=== PATIENT | male | born 1965 | race Caucasian/White ===

== ENCOUNTER 2020-03-27 12:54 | Emergency (ER) | payer OTHER, SELFPAY ==
[2020-03-27 12:54] VITALS: BP 137/84; PULSE 69; RESP 20; TEMP 36.8; O2SAT 98
--- NOTE | 2020-03-27 13:07 | ED.WOUNDLAC ---
HPI - Wound/Laceration General Chief Complaint: Wound/Laceration Stated Complaint: wrist lac Time Seen by Provider: 03/27/20 12:58 History of Present Illness HPI narrative: previously health 54 yo male presents to the ED for a forearm injury. He accidentally cut his arm with a compact mitre saw. Deep laceration to anterior forearm. Motor and sensory intact. Bleeding controlled. Unsure of tetanus status. Moderate pain. Related Data Allergies Allergy/AdvReac Type Severity Reaction Status Date / Time No Known Allergies Allergy Verified 03/27/20 13:00 Review of Systems Review of Systems: All systems reviewed & are unremarkable except as noted in HPI and below (HPI and below) Constitutional: Constitutional: Denies chills, Denies fever(s) and Denies weakness Cardiovascular: Cardiovascular: Denies chest pain Respiratory: Respiratory: Denies dyspnea Gastrointestinal: Gastrointestinal: Denies nausea Genitourinary: Genitourinary: Denies dysuria Musculoskeletal: Musculoskeletal: Denies back pain Neurologic: Denies dizziness and Denies weakness [facility] Past Medical History Medical History (Updated 03/27/20 @ 14:34 by Floyd Ugarte MD) Healthy adult Social History Social History Gender identity (if verbalized by the patient): Male Exam Const: General: healthy appearing, no acute distress and alert Orientation/consciousness: patient oriented x3 HENMT: Head: normal to inspection Neck: Neck: normal visual inspection Resp: Effort & Inspection: normal respiratory effort Auscultation: clear to auscultation bilaterally Cardio: Other: 2 + right radial. brisk distal capillary refill Extrem: Other: 5 cm laceration to anterior forearm. 2 cm disruption of fascia and apparent tendon injury. Appears partial with mild muscular involvement. Motor and sensory grossly intact throughout. Course Vital Signs Vital signs: Vital Signs Temperature 36.8 C 03/27/20 12:54 Pulse Rate 69 03/27/20 12:54 Respiratory Rate 20 03/27/20 12:54 Blood Pressure 137/84 03/27/20 12:54 Pulse Oximetry 98 03/27/20 12:54 Temperature 36.8 C 03/27/20 12:54 Pulse Rate 90 03/27/20 14:22 Respiratory Rate 20 03/27/20 14:22 Blood Pressure 128/88 03/27/20 14:22 Pulse Oximetry 100 03/27/20 14:22 Procedures Laceration Laceration 1: Site: upper extremity Side (If applicable): right Size (cm): 5 Description: linear Depth: involves tendon Local Anesthetic: lidocaine 1% and with epi Amount of anesthesia used (mL): 4 Pre-repair: wound explored and irrigated extensively (500 ml) ====== Skin Level ====== ====== Subcutaneous Layer ====== ====== Muscle Layer ====== ====== Tendon Layer ====== Dressing: No closure performed. Dr. Soler called due to tendon involvement. He will see him in clinic this afternoon. Discharge Plan Discharge Clinical Impression: Forearm laceration Qualifiers: Encounter type: initial encounter Laterality: right Qualified Code(s): S51.811A - Laceration without foreign body of right forearm, initial encounter Patient Disposition: Home, Self-Care Condition: Stable Instructions: Antibiotic Form, Laceration (ED) Follow-up/Referrals: Varun Avila MD [Physician] - Freddy Soler MD [Physician] -
[2020-03-27 14:22] VITALS: BP 128/88; PULSE 90; RESP 20; O2SAT 100
== END 2020-03-27 14:24 | disposition home or self-care (01) ==
PROVIDERS: Emergency Provider Emergency Medicine; PCP Internal Medicine
DX: S56.921A Laceration of unspecified muscles, fascia and tendons at forearm level, right arm, initial encounter (principal); S51.811A Laceration without foreign body of right forearm, initial encounter; W31.2XXA Contact with powered woodworking and forming machines, initial encounter
CPT/HCPCS: 99282

== ENCOUNTER → 2020-03-30 07:41 | Outpatient (CLI) | payer OTHER, SELFPAY ==
[2020-03-30 18:27] LABS: SARS-CoV-2 RNA PCR Negative
== END ==
PROVIDERS: PCP Internal Medicine; Visit Provider Plastic Surgery
DX: Z01.812 Encounter for preprocedural laboratory examination (principal); Z20.822 Contact with and (suspected) exposure to COVID-19
CPT/HCPCS: C9803; U0003; U0005

== ENCOUNTER 2020-03-31 12:53 | Outpatient (CLI) | payer OTHER, SELFPAY ==
--- NOTE | 2020-03-31 12:57 | ECG_ITS ---
Measurements Intervals [place] Rate: 70 P: 62 [place]: 126 QRS: 55 QRSD: 118 T: 13 QT: 418 QTc: 453 Interpretive Statements SINUS RHYTHM INCOMPLETE RIGHT BUNDLE BRANCH BLOCK DELAYED PRECORDIAL R/S TRANSITION BORDERLINE T WAVE ABNORMALITY- INFERIOR LEADS BASELINE ARTIFACT- I, II, III, V1 BORDERLINE ECG Electronically Signed On 03-31-2020 13:48:55 [employer] by Parvez Carrasco D.O.
[2020-03-31 13:31] LABS: Anion Gap 7 mmol/L (8-16); Blood Urea Nitrogen 20 mg/dL (9-20); Calcium 8.8 mg/dL (8.4-10.2); Carbon Dioxide 28 mmol/L (22-30); Chloride 101 mmol/L (98-107); Estimated Glomerular Filt Rate > 60; Glucose 96 mg/dL (75-110); Potassium 3.5 mmol/L (3.4-5.0); Sodium 136 mmol/L (137-145)
== END 2020-03-31 12:54 | disposition home or self-care (01) ==
LOC: ANHSURGERY 12:57
PROVIDERS: Anesthesiology; PCP Internal Medicine; Visit Provider Plastic Surgery
DX: Z01.818 Encounter for other preprocedural examination (principal); I10 Essential (primary) hypertension; I45.10 Unspecified right bundle-branch block
CPT/HCPCS: 36415; 80048; 93005

== ENCOUNTER 2020-04-02 00:29 | Day surgery (SDC) | payer OTHER, SELFPAY ==
[2020-03-31 10:10] VITALS: BMI 29.6
[2020-04-02] VITALS (8 sets, daily range): BP systolic 140–154; BP diastolic 75–91; PULSE 60–66; RESP 10–20; TEMP 36.2–36.9; O2SAT 97–100
--- NOTE | 2020-04-02 07:08 | WPDHPUPDATE1 ---
History and Physical Update Update Date/Time: 04/02/20 07:08 History and Physical has been reviewed, including an updated exam of the patient. There are NO changes in the patient's condition. Risks, benefits, and alternatives have been discussed and questions answered. Patient agrees to proceed with procedure.
[2020-04-02] MEDS: LACTATED RINGERS 1,000 ML 30 ML IV CONT (09:08)
--- NOTE | 2020-04-02 09:43 | WPDANESEPPF ---
Anes - Initial Pre Proc Eval Procedure: Operation Date: 04/02/20 10:30 Proposed Procedures p Repair Right Flexor Carpi Radialis Tendon(Right) - Freddy Song MD Date/Time: 04/02/20 09:43 Surgeon: Frdedy Song MD Pre Op Diagnosis: Partial Laceration Of The Right Flexor Carpi Radia Patient Data Age: 54 Gender: M Height: 5 ft 9 in Weight: 92.3 kg Last Vital Signs Temp 36.9 C 04/02/20 09:11 Pulse 66 04/02/20 09:11 Resp 16 04/02/20 09:11 BP 145/81 H 04/02/20 09:11 Pulse Ox 99 04/02/20 09:11 Allergies Allergy/AdvReac Type Severity Reaction Status Date / Time No Known Allergies Allergy Verified 04/02/20 08:30 Home Medications Medication Instructions Recorded Confirmed Type amlodipine 5 mg PO DAILY 03/31/20 04/02/20 History atorvastatin 20 mg PO DAILY 03/31/20 04/02/20 History fluticasone propion-salmeterol 1 inh INHALATION BID 03/31/20 04/02/20 History [Wixela Inhub] hydrochlorothiazide 25 mg PO DAILY 03/31/20 04/02/20 History levothyroxine 137 mcg PO DAILY 03/31/20 04/02/20 History olmesartan 20 mg PO DAILY 03/31/20 04/02/20 History Patient hx anesthesia problems: none Family hx anesthesia problems: none PMFSH Past Medical History Medical History (Updated 04/02/20 @ 09:43 by Helio Ricktets MD) HTN (hypertension) Hyperlipidemia Obesity Surgical History Surgical History (Updated 04/02/20 @ 09:43 by Helio Ricketts MD) H/O sinus surgery History of appendectomy Social History Social History Smoking status: Never smoker Alcohol intake: current Living arrangements: with family Gender identity (if verbalized by the patient): Male Spiritual care concerns: No Anes - Eval Final PreProcedure Day of Procedure 04/02/20 09:43 Patient weight: obese Heart: regular rate and rhythm Lungs: clear to auscultation Airway: Mallampati scale class II Neurological: alert and oriented Last oral intake: >/= 8 hours ASA classification: II Emergent: no Anesthetic plan: proceed Anesthesia type and monitoring: general LMA and standard monitoring Informed Consent: The patient's anesthetic plan and its attendant risks and benefits were discussed with the patient/family/POA. Questions were solicited and answers provided to the satisfaction of the patient/family/POA.
[2020-04-02] MEDS: LIDO 1%/EPINEPHRINE 1:100,000 50 ML VIAL INFILTRATE (11:15)
[2020-04-02] MEDS: BACITRACIN OINTMENT 15 GM TUBE 1 APPLIC TOPICAL (11:24)
--- NOTE | 2020-04-02 12:10 | PM.OP ---
Procedure Note - Brief Procedure Note - Brief Date of procedure: 04/02/20 Pre-op diagnosis: Partial Laceration Of The Right Flexor Carpi Radia Post-op diagnosis: same Procedure performed: Repair FCR Anesthesia: MAC Surgeon: Freddy Song MD Tourniquet time (min): 31 Drains: No Packing: No Pathology: none sent Complications: No immediate complications Disposition: same day
--- NOTE | 2020-04-02 12:39 | P.OP_ITS ---
Procedure Note - Detailed Date of procedure: 04/02/20 Pre-op diagnosis: Partial Laceration Of The Right Flexor Carpi Radia Post-op diagnosis: same Procedure performed: Repair of 75% laceration of the flexor carpi radialis tendon, right upper extremity Description of procedure: The right wrist area was marked as the patient only in holding. He was taken to the operating room where he was placed supine on the operating table. Time-out was held confirmed. He was given general anesthesia with an LMA. The extremity was prepped and draped in usual fashion. The site was examined and was scrubbed rather briskly with a wet Ray-Abilio sponge. The site was locally infiltrated with 1% lidocaine with epinephrine. There was no necrotic tissue, there was no purulence, there was excellent granulation tissue. The sheath around the flexor carpi radialis was incised proximally and distally to ascertain the in entire wound to the tendon. As noted approximately 25% tendon remained intact. The other 75% was some shredded and had retracted. We were able to free that up and, with a little wrist flexion, could approximate the opposing lacerated ends. A modified Ortiz stitch with 3-0 FiberWire was placed across that as the primary tension bearing repair. This was followed by a [id number] stitch at the same site. The frayed ends were repaired to the rest of the core with running 5 0 Prolene at several sites.. This repair did no t result in a flexion deformity. We were able to extend and flex the wrist without significant stress on the repair site. The skin was closed with a running 5 0 nylon. The bulky bandage with a stock volar wrist splint was applied he has instructions in wound care and follow-up the prescription being sent for Keflex 500 mg in the the team and some hydrocodone 5/325 Surgeon: Freddy Song MD
== END 2020-04-02 13:50 | disposition home or self-care (01) ==
PROVIDERS: PCP Internal Medicine; Visit Provider Plastic Surgery
PROC: (CPT 25260; principal; 2020-04-02 10:30)
DX: S66.821A Laceration of other specified muscles, fascia and tendons at wrist and hand level, right hand, initial encounter (principal); W31.2XXA Contact with powered woodworking and forming machines, initial encounter; I10 Essential (primary) hypertension; E78.5 Hyperlipidemia, unspecified; J45.909 Unspecified asthma, uncomplicated; E07.9 Disorder of thyroid, unspecified; E66.9 Obesity, unspecified; Z68.30 Body mass index [BMI] 30.0-30.9, adult
CPT/HCPCS: 25260; 36415; 80048; 93005; A9270; C9803; J1100; J2250; J2405; J2704; J3010; J7120; U0003; U0005

== ENCOUNTER 2020-07-05 11:41 | Emergency (ER) | payer OTHER, SELFPAY ==
[2020-07-05 11:50] VITALS: BP 147/97; PULSE 68; RESP 16; TEMP 37; O2SAT 99
--- NOTE | 2020-07-05 12:21 | ED.GENADULT ---
HPI - General Adult General Chief complaint: Abdominal Pain Stated complaint: Abd complaint Time Seen by Provider: 07/05/20 12:21 Source: patient Mode of arrival: ambulatory Limitations: no limitations History of Present Illness HPI narrative: Rakesh Macias 5-year-old male who comes to [facility] with complaints of left upper quadrant pain that started on Monday. He has no trauma and no medical reason for having the pain but did have an a lot of alcohol to drink on evening (described as more than 6 beers). He has not had this pain before he has not had a fever he has no nausea vomiting but he generally has a feeling of not wanting to eat, he is eaten Monday evening he had some pizza Monday had some steak and and peanuts and was tolerated that fine but states his appetite is different and just feels different so he will is interested in getting a more in-depth evaluation of the pain. Is nonreproducible Related Data Home Medications Medication Instructions Recorded Confirmed amlodipine 5 mg PO DAILY 03/31/20 04/02/20 atorvastatin 20 mg PO DAILY 03/31/20 04/02/20 fluticasone propion-salmeterol 1 inh INHALATION BID 03/31/20 04/02/20 [Melissaxela Inhub] hydrochlorothiazide 25 mg PO DAILY 03/31/20 04/02/20 levothyroxine 137 mcg PO DAILY 03/31/20 04/02/20 olmesartan 20 mg PO DAILY 03/31/20 04/02/20 Allergies Allergy/AdvReac Type Severity Reaction Status Date / Time No Known Allergies Allergy Verified 04/02/20 08:30 Review of Systems Review of Systems: Narrative: CONSTITUTIONAL: Denies fever, chills, sweats. EYES: Denies visual changes, redness, discharge. ENT: Denies rhinorrhea, congestion, sore throat, otalgia. CARDIOVASCULAR: Denies chest pain, palpitations, edema. RESPIRATORY: Denies dyspnea, wheezing, cough GASTROINTESTINAL: Denies abdominal pain, nausea, vomiting, diarrhea. Left upper quadrant pain GENITOURINARY: Denies dysuria, hematuria, abnormal discharge SKIN: Denies rash or itching. NEUROLOGIC: Denies numbness, or focal weakness. PSYCHIATRIC: Denies anxiety or depression. [facility] Past Medical History Medical History HTN (hypertension) Hyperlipidemia Obesity Surgical History Surgical History H/O sinus surgery History of appendectomy Social History Social History Smoking status: Never smoker Alcohol intake: current Gender identity (if verbalized by the patient): Male Spiritual care concerns: No Comments At time of signature, I agree with nursing past medical, surgical, social and family history. There is no relevant family history pertinent to the presenting complaint. Exam Narrative: Exam Narrative: GENERAL: This is a well-nourished, well-developed patient, in mild distress. HEAD: normocephalic, atraumatic. EYES: Sclera clear/white. Vision is grossly intact. EARS: External ears normal, . Hearing grossly intact. NOSE: External nose normal without nasal discharge, nares without redness, no rhinorrhea. THROAT: Mucous membranes moist, NECK: Neck supple, non-tender CARDIOVASCULAR: Regular rate and rhythm without murmurs, gallops, or rubs. RESPIRATORY: Clear to auscultation. Breath sounds equal bilaterally. No wheezes, rales, or rhonchi. GASTROINTESTINAL: Abdomen soft, -tender in left upper quadrant almost behind rib cage, not exquisitely so he is able to talk normally during the abdominal exam, he has good bowel sounds, SKIN: warm, intact with no suspicious lesions or rash, good texture and turgor. NEURO: awake, alert, and oriented to person, place and time. There were no obvious focal neurologic abnormalities. Steady gait EXTREMITIES: Normal range of motion. BACK: Nontender without deformity Course Course Emergency Course: 55-year-old [facility] of left upper quadrant pain On exam he has so
== END 2020-07-05 12:43 | disposition home or self-care (01) ==
PROVIDERS: Emergency Provider Nurse Practitioner; PCP Internal Medicine
DX: R10.12 Left upper quadrant pain (principal); I10 Essential (primary) hypertension; E78.5 Hyperlipidemia, unspecified; E66.9 Obesity, unspecified; Z68.30 Body mass index [BMI] 30.0-30.9, adult
CPT/HCPCS: 99211; G0463

== ENCOUNTER 2020-07-05 13:09 | Emergency (ER) | payer OTHER, SELFPAY ==
--- NOTE | ~2020-07-05 | CT_ITS ---
EXAMINATION: CT abdomen pelvis w con EXAM DATE: 07/05/2020 15:48 INDICATION: LUQ abd pain . TECHNIQUE: Spiral CT of the abdomen and pelvis was performed following intravenous injection of 100 m L Omnipaque 350. Axial, coronal and sagittal images of the abdomen and pelvis were reviewed. The do se-length product (DLP) for this examination was 698.02 mGy-cm. The exposure was tailored according to patient size (auto mA exposure control), and iterative reconstruction (ASIR) was used as additiona l dose reduction technique. Comparison is made to prior examination from 2007. FINDINGS: The liver, spleen, adrenal glands and pancreas are unremarkable. Gallbladder is unremarkab le. No biliary obstruction. Portal and splenic veins are patent. Kidneys enhance symmetrically. T here is no hydronephrosis. The prostate is unremarkable. The bladder is unremarkable. There is no retroperitoneal or pelvic lymphadenopathy. There are surgical changes consistent with appendectomy. The stomach and small bowel are unremarkab le. There is expected amount of colonic stool. No free intraperitoneal gas. The heart is normal in size. There are no pericardial or pleural effusions. The lung bases are unremarkable. The bones are unremarkable. IMPRESSION: 1. No acute intra-abdominal findings. Reviewed, dictated and finalized at location A.
[2020-07-05 13:15] VITALS: BP 158/93; PULSE 72; RESP 18; TEMP 36.2; O2SAT 100
[2020-07-05 13:42] LABS: Basophils Absolute Auto 0.1 K/mm3 (0.0-0.1); Basophils Percent Auto 1.1 % (0.2-1.2); Eosinophils Absolute Auto 0.5 K/mm3 (0-0.3); Eosinophils Percent Auto 8.7 % (0-4.4); Hematocrit 46.2 % (42.0-52.0); Hemoglobin 15.4 g/dL (14.0-18.0); Immature Granulocyte Absolute 0.02 K/mm3 (0.00-0.031); Immature Granulocyte Percent A 0.4 % (0-0.5); Lymphocytes Absolute Auto 1.87 K/mm3 (0.9-3.2); Lymphocytes Percent Auto 33.3 % (18.3-44.2); Mean Corpuscular HGB Conc 33.3 g/dl (32-36); Mean Corpuscular Hemoglobin 29.5 pg (26-34); Mean Corpuscular Volume 88.5 fl (80-100); Mean Platelet Volume 9.8 fl (7.4-10.4); Monocytes Absolute Auto 0.7 K/mm3 (0.1-0.6); Monocytes Percent Auto 12.5 % (2.6-8.5); Neutrophils Absolute Auto 2.5 K/mm3 (1.3-6.7); Platelet Count Result 192 k/mm3 (150-375); Red Blood Count 5.22 M/mm3 (4.6-6.20); Red Cell Distribution Width 13.1 % (11.5-14.5); White Blood Count 5.6 K/mm3 (4.5-10.0)
[2020-07-05 13:44] LABS: Add Urine Microscopic? NO; Appearance Urine Clear (Clear); Bilirubin Urine Negative (Negative); Blood Urine Negative (Negative); Color Urine Yellow (Yellow); Glucose Urine UA Negative (Negative); Ketones Urine Negative (Negative); Leukocyte Esterase Ur Negative LEU/UL (Negative); Nitrate Urine Negative (Negative); Protein Urine Negative (Negative); Specific Grav Ur 1.014 (1.001-1.035); Urobilinogen Urine Negative mg/dL (<2.0)
[2020-07-05 13:51] LABS: Alanine Aminotransferase 34 U/L (4-50); Albumin Level 4.9 g/dL (3.5-5.1); Alkaline Phosphatase 60 U/L (38-126); Anion Gap 10 mmol/L (8-16); Aspartate Amino Transferase 35 U/L (17-59); Bilirubin,Total 0.7 mg/dL (0.2-1.3); Blood Urea Nitrogen 19 mg/dL (9-20); Calcium 10.1 mg/dL (8.4-10.2); Carbon Dioxide 28 mmol/L (22-30); Chloride 102 mmol/L (98-107); Estimated CRCL calculation 77 ml/min; Estimated Glomerular Filt Rate > 60; Glucose 101 mg/dL (75-110); Lipase 90 U/L (23-300); Potassium 3.9 mmol/L (3.4-5.0); Sodium 140 mmol/L (137-145)
--- NOTE | 2020-07-05 14:46 | ECG_ITS ---
Measurements Intervals [place] Rate: 61 P: 44 [place]: 131 QRS: 49 QRSD: 122 T: 10 QT: 433 QTc: 438 Interpretive Statements SINUS RHYTHM INCOMPLETE RIGHT BUNDLE BRANCH BLOCK DELAYED PRECORDIAL R/S TRANSITION BORDERLINE ECG Electronically Signed On 07-05-2020 19:18:09 CDT by Parvez Carrasco D.O.
--- NOTE | 2020-07-05 14:50 | ED.GENADULT ---
HPI - General Adult General Chief complaint: Abdominal Pain Stated complaint: abd pain from express care Time Seen by Provider: 07/05/20 14:43 Source: RN notes reviewed History of Present Illness HPI narrative: Patient presents to emergency room from home for left upper quadrant abdominal pain. Patient states symptoms again 3 days ago. The pain is located left upper quadrant does not radiate worse with coughing and sneezing deep inspiration he denies any fevers or chills chest pain, shortness of breath, nausea, vomiting, diarrhea or any other symptoms states he took no pain medication for the symptoms today Related Data Home Medications Medication Instructions Recorded Confirmed amlodipine 5 mg PO DAILY 03/31/20 04/02/20 atorvastatin 20 mg PO DAILY 03/31/20 04/02/20 fluticasone propion-salmeterol 1 inh INHALATION BID 03/31/20 04/02/20 [Wixela Inhub] levothyroxine 137 mcg PO DAILY 03/31/20 04/02/20 olmesartan 20 mg PO DAILY 03/31/20 04/02/20 albuterol sulfate [ProAir HFA] INHALATION 07/05/20 fluticasone propionate [Flonase] 2 spray INTRANASAL DAILY 07/05/20 Allergies Allergy/AdvReac Type Severity Reaction Status Date / Time No Known Allergies Allergy Verified 07/05/20 13:21 Review of Systems Review of Systems: Narrative: Gen.: Denies fevers or chills ENT: Denies congestion Respiratory: Denies shortness of breath or cough CV: Denies chest pain or palpitations GI: Reports abdominal pain, denies nausea, emesis or diarrhea denies burning, urgency, frequency or hematuria Musculoskeletal: Denies back pain or muscle pain Neuro: Denies numbness, tingling, weakness or focal weakness Skin: Denies rash Except as documented, all other systems reviewed and negative PMF Past Medical History Medical History HTN (hypertension) Hyperlipidemia Obesity Surgical History Surgical History H/O sinus surgery History of appendectomy Social History Social History Smoking status: Never smoker Alcohol intake: current Gender identity (if verbalized by the patient): Male Spiritual care concerns: No Exam Narrative: Exam Narrative: APPEARANCE: No acute distress, nontoxic, resting in bed HEENT: Normocephalic, atraumatic, OMM RESPIRATORY: No respiratory distress, clear to auscultation bilaterally with no rhonchi wheezing or rales CARDIOVASCULAR: RRR s murmur ABDOMINAL: Soft nondistended tender palpation left upper quadrant no tenderness in right upper quadrant and right lower quadrant left lower quadrant no rebound or guarding pain is increased with activation of of the abdominal wall muscles with flexing or tensing down MUSCULOSKELETAl: Moves all extremities. No clubbing, cyanosis or edema. NEURO: Awake and alert. Following commands, speech normal, no focal deficits SKIN:: Warm, dry. Normal Color PSYCHIATRIC: Normal affect/mood Course Course Emergency Course: Discussed with patient results of workup and diagnosis. Discussed need for follow-up with primary care, proper use of medication, and reasons to return to the emergency department. Patient understands and agrees to current treatment plan Vital Signs Vital signs: Vital Signs Temperature 97.2 F L 07/05/20 13:15 Pulse Rate 72 07/05/20 13:15 Respiratory Rate 18 07/05/20 13:15 Blood Pressure 158/93 H 07/05/20 13:15 Pulse Oximetry 100 07/05/20 13:15 Temperature 97.2 F L 07/05/20 13:15 Pulse Rate 72 07/05/20 13:15 Respiratory Rate 18 07/05/20 13:15 Blood Pressure 158/93 H 07/05/20 13:15 Pulse Oximetry 100 07/05/20 13:15 Medical Decision Making MDM Narrative Medical decision making narrative: Patient's abdomen is soft without significant pain or signs of surgical abdomen on serial exams. Lab and x-ray evaluations are reviewed and patient is felt to be a reasonable can
[2020-07-05 15:27] LABS: Troponin I < 0.012 ng/mL (0.000-0.034)
== END 2020-07-05 16:51 | disposition home or self-care (01) ==
PROVIDERS: Emergency Provider Emergency Medicine; PCP Internal Medicine
DX: S39.011A Strain of muscle, fascia and tendon of abdomen, initial encounter (principal); I10 Essential (primary) hypertension; E78.5 Hyperlipidemia, unspecified; E66.9 Obesity, unspecified; Z68.30 Body mass index [BMI] 30.0-30.9, adult; I45.10 Unspecified right bundle-branch block; X58.XXXA Exposure to other specified factors, initial encounter
CPT/HCPCS: 36415; 74177; 80053; 81003; 83690; 84484; 85025; 93005; 99284; A9270; Q9967

== ENCOUNTER → 2022-04-07 08:04 | Outpatient (CLI) | payer OTHER, SELFPAY ==
--- NOTE | ~2022-04-07 | XR_ITS ---
EXAMINATION: XR lumbar spine 2-3V DATE: 04/07/2022 08:49 INDICATION: Chronic low back pain TECHNIQUE: AP and lateral views of the lumbar spine were obtained. COMPARISON: CT, 07/05/2020 FINDINGS: There are 2 mm of retrolisthesis of L5 on S1. The vertebral body heights are maintained. Th ere is mild loss of intervertebral disc space height at L1-2 and L5-S1. There is mild facet joint ost eoarthritis of the lower lumbar spine. There is no fracture. A moderate volume of colonic stool is pr esent. IMPRESSION: 1. Mild lumbar spondylosis without acute findings. Reviewed, dictated and finalized at location L. [employer] SERVICES VICE PRESIDENT
== END ==
PROVIDERS: PCP Internal Medicine; Visit Provider Internal Medicine
DX: M47.816 Spondylosis without myelopathy or radiculopathy, lumbar region (principal)
CPT/HCPCS: 72100

== ENCOUNTER 2023-04-07 06:46 | Day surgery (SDC) | payer OTHER, SELFPAY ==
[2023-03-14 11:35] VITALS: BMI 31.1
--- NOTE | 2023-04-05 14:17 | SUR.PREOP ---
Patient called regarding upcoming procedure. Reviewed preop instructions, appointment times, and procedure prep.
[2023-04-07 09:04] VITALS: BP 132/85; PULSE 60; RESP 18; TEMP 36.1; O2SAT 98
[2023-04-07] MEDS: LACTATED RINGERS 1,000 ML 150 ML IV CONT (09:07)
--- NOTE | 2023-04-07 09:11 | P.PNAN_ITS ---
Anes - Initial Pre Proc Eval Procedure: Operation Date: 04/07/23 09:30 Proposed Procedures p Screening Colonoscopy - Mor Newman MD Date/Time: 04/07/23 09:11 Surgeon: Mor Newman MD Pre Op Diagnosis: neoplasm screening, family history colon polyps Patient Data Age: 57 Gender: M Height: 1.75 m Weight: 96.4 kg Last Vital Signs Temp 97 F L 04/07/23 09:04 Pulse 60 04/07/23 09:04 Resp 18 04/07/23 09:04 BP 132/85 04/07/23 09:04 Pulse Ox 98 04/07/23 09:04 O2 Del Method Room Air 04/07/23 09:04 Allergies Allergy/AdvReac Type Severity Reaction Status Date / Time No Known Allergies Allergy Verified 04/07/23 09:03 Home Medications Medication Instructions Recorded Confirmed Type amlodipine 5 mg tablet 5 mg PO DAILY 03/31/20 03/14/23 History atorvastatin 20 mg tablet 20 mg PO DAILY 03/31/20 03/14/23 History fluticasone 250 mcg-salmeterol 50 1 inh inhalation BID PRN Shortness 03/31/20 03/14/23 History mcg/dose blistr powdr for Of Breath inhalation (Wixela Inhub) levothyroxine 137 mcg tablet 137 mcg PO DAILY 03/31/20 03/14/23 History olmesartan 20 mg tablet 20 mg PO DAILY 03/31/20 03/14/23 History albuterol sulfate 90 mcg/actuation 1 inh inhalation DAILY PRN 07/05/20 03/14/23 History aerosol inhaler (ProAir HFA) Shortness Of Breath famotidine 20 mg tablet (Pepcid) 20 mg PO DAILY #14 tabs 07/05/20 03/14/23 Rx fluticasone propionate 50 2 spray intranasal DAILY PRN 07/05/20 03/14/23 History mcg/actuation nasal allergies spray,suspension Patient hx anesthesia problems: none Family hx anesthesia problems: none Results Review: All pre-operative results and documents have been reviewed as part of the pre- operative evaluation. [facility] Past Medical History Medical History HTN (hypertension) Hyperlipidemia Obesity Surgical History Surgical History H/O sinus surgery History of appendectomy Social History Social History Smoking status: Never smoker Alcohol intake: current Drinks per week: 6 Substance use type: does not use Living arrangements: other Additional living arrangements comments: with sp Gender identity (if verbalized by the patient): Male Spiritual care concerns: No Anes - Eval Final PreProcedure Day of Procedure 04/07/23 09:11 Patient weight: normal Heart: regular rate and rhythm Lungs: clear to auscultation Airway: Mallampati scale class II Neurological: alert and oriented Last oral intake: >/= 8 hours ASA classification: III Emergent: no Anesthetic plan: proceed Anesthesia type and monitoring: general and standard monitoring Results Review: All pre-operative results and documents have been reviewed as part of the pre- operative evaluation. Informed Consent: The patient's anesthetic plan and its attendant risks and benefits were discussed with the patient/family/POA. Questions were solicited and answers provided to the satisfaction of the patient/family/POA.
--- NOTE | 2023-04-07 09:12 | PM.HPGS ---
History of Present Illness History of Present Illness Consent: Risks, benefits, and alternatives have been discussed and questions answered. Patient agrees to proceed with procedure. Chief complaint: neoplasm screening, family history colon polyps Narrative: Rakesh Macias is a 57 year old male here for screening colonoscopy, last one ~ 5 years ago Review of Systems Constitutional: Constitutional: Denies headache(s) and Denies weakness Eyes: Eyes: Denies blurry vision ENT: Reports Normal hearing present, Denies headache(s) and Denies neck pain Cardiovascular: Cardiovascular: Denies chest pain and Denies dyspnea Respiratory: Respiratory: Denies dyspnea Gastrointestinal: Gastrointestinal: Reports no additional gastrointestinal complaints Genitourinary: Genitourinary: Denies dysuria Musculoskeletal: Musculoskeletal: Denies neck pain Integumentary/Breasts: Skin/Breast: Denies dry skin Neurologic: Reports Normal hearing present, Denies headache(s) and Denies weakness Psychiatric: Psychiatric: Denies anxiety Endocrine: Endocrine: Denies change in body appearance Hematologic/Lymphatic: Hematologic/Lymphatic: Denies easy bleeding Allergic/Immunologic: Allergic/Immunologic: Denies urticaria PMFSH Past Medical History Medical History (Updated 04/07/23 @ 09:12 by Mor Newman MD) Colon cancer screening HTN (hypertension) Hyperlipidemia Obesity Surgical History Surgical History H/O sinus surgery History of appendectomy Social History Social History Smoking status: Never smoker Alcohol intake: current Drinks per week: 6 Substance use type: does not use Living arrangements: other Additional living arrangements comments: with sp Gender identity (if verbalized by the patient): Male Spiritual care concerns: No Meds Home Medications and Allergies Home Medications Medication Instructions Recorded Confirmed Type amlodipine 5 mg tablet 5 mg PO DAILY 03/31/20 03/14/23 History atorvastatin 20 mg tablet 20 mg PO DAILY 03/31/20 03/14/23 History fluticasone 250 mcg-salmeterol 50 1 inh inhalation BID PRN Shortness 03/31/20 03/14/23 History mcg/dose blistr powdr for Of Breath inhalation (Wixela Inhub) levothyroxine 137 mcg tablet 137 mcg PO DAILY 03/31/20 03/14/23 History olmesartan 20 mg tablet 20 mg PO DAILY 03/31/20 03/14/23 History albuterol sulfate 90 mcg/actuation 1 inh inhalation DAILY PRN 07/05/20 03/14/23 History aerosol inhaler (ProAir HFA) Shortness Of Breath famotidine 20 mg tablet (Pepcid) 20 mg PO DAILY #14 tabs 07/05/20 03/14/23 Rx fluticasone propionate 50 2 spray intranasal DAILY PRN 07/05/20 03/14/23 History mcg/actuation nasal allergies spray,suspension Allergies Allergy/AdvReac Type Severity Reaction Status Date / Time No Known Allergies Allergy Verified 04/07/23 09:03 Vital Signs Vital Signs - 24 hr 04/07/23 09:04 Temperature 97 F L Pulse Rate 60 Respiratory Rate 18 Blood Pressure 132/85 Pulse Oximetry 98 Oxygen Delivery Room Air Exam Const: General: comfortable and no acute distress HENMT: Face/Nose/Sinus: Normal nares present Eyes: General: appearance normal, both eyes and all related structures Neck: Neck: no JVD Resp: Auscultation: clear to auscultation bilaterally Cardio: Rate: regular rate Rhythm: regular rhythm GI: Inspection: non-distended GI Palp: Yes Soft to palpation Skin: General skin exam: normal color Neuro: General: gait normal Speech: normal speech Extrem: General: normal to inspection Psych: Mental Status: mental status grossly normal Assessment and Plan Assessment and plan (1) Colon cancer screening: Code(s): Z12.11 - Encounter for screening for malignant neoplasm of colon Status: Acute Assessment and Plan: colonoscopy
[2023-04-07 09:37] VITALS: BP 117/73; PULSE 60; RESP 22; O2SAT 98
[2023-04-07 09:47] VITALS: BP 112/72; PULSE 57; RESP 22; O2SAT 97
[2023-04-07 09:57] VITALS: BP 125/76; PULSE 54; RESP 20; O2SAT 99
== END 2023-04-07 10:00 | disposition home or self-care (01) ==
PROVIDERS: PCP Internal Medicine; Visit Provider Internal Medicine Gastroenterology
PROC: 0DJD8ZZ Inspection of Lower Intestinal Tract, Via Natural or Artificial Opening Endoscopic (ICD-10-PCS; CPT 45378; principal; 2023-04-07 09:30)
DX: Z12.11 Encounter for screening for malignant neoplasm of colon (principal); D12.0 Benign neoplasm of cecum; D12.3 Benign neoplasm of transverse colon; K64.8 Other hemorrhoids; K57.30 Diverticulosis of large intestine without perforation or abscess without bleeding; Z83.719 Family history of colon polyps, unspecified; I10 Essential (primary) hypertension; E78.5 Hyperlipidemia, unspecified; E66.9 Obesity, unspecified; Z68.31 Body mass index [BMI] 31.0-31.9, adult
CPT/HCPCS: 45380; 45385; 88305; J2704; J7120

== ENCOUNTER 2023-09-04 10:12 | Emergency (ER) | payer OTHER, SELFPAY ==
[2023-09-04 10:22] VITALS: BP 145/85; PULSE 60; RESP 16; TEMP 37; O2SAT 98
--- NOTE | 2023-09-04 10:34 | ED.BACK ---
HPI - Back Pain/Injury General Chief Complaint: Back Pain/Injury Stated Complaint: Back Pain Time Seen by Provider: 09/04/23 10:24 Source: patient and RN notes reviewed Mode of arrival: ambulatory Limitations: no limitations History of Present Illness HPI Narrative: Patient presents today complaining midline lower lumbar back pain that was present when he woke up yesterday morning. Patient has history of chronic low back pain due to a high school football injury leading to 3 bulging discs. The pain is not always present, but he does have occasional exacerbations. Denies any current injury, radiation of the pain, numbness or tingling in the extremities or genitalia, loss of bowel or bladder control. Denies urinary symptoms. Currently rates his pain 6/10, which increases with movement. He has tried Advil without much relief. Related Data Home Medications Medication Instructions Recorded Confirmed amlodipine 5 mg tablet 5 mg PO DAILY 03/31/20 09/04/23 atorvastatin 20 mg tablet 20 mg PO DAILY 03/31/20 09/04/23 levothyroxine 137 mcg tablet 137 mcg PO DAILY 03/31/20 09/04/23 olmesartan 20 mg tablet 20 mg PO DAILY 03/31/20 09/04/23 albuterol sulfate 90 mcg/actuation 1 inh inhalation DAILY PRN 07/05/20 09/04/23 aerosol inhaler (ProAir HFA) Shortness Of Breath fluticasone propionate 50 2 spray intranasal DAILY PRN 07/05/20 09/04/23 mcg/actuation nasal allergies spray,suspension Allergies Allergy/AdvReac Type Severity Reaction Status Date / Time No Known Allergies Allergy Verified 09/04/23 10:18 Review of Systems Review of Systems: CONSTITUTIONAL: Denies body aches, fever, chills, or sweats. EYES: Denies visual changes, redness, or discharge. ENT: Denies rhinorrhea, congestion, sore throat, or otalgia. CARDIOVASCULAR: Denies chest pain, palpitations, or edema. RESPIRATORY: Denies cough or dyspnea. GASTROINTESTINAL: Denies abdominal pain, nausea, vomiting, or diarrhea. GENITOURINARY: Denies dysuria or hematuria. SKIN: Denies rash, itching, or wounds. MUSCULOSKELETAL: Denies joint pain, or myalgia.+ back pain NEUROLOGIC: Denies headache, numbness, tingling, or weakness. PSYCH: Denies depression or anxiety. PMFSH Past Medical History Medical History Colon cancer screening HTN (hypertension) Hyperlipidemia Obesity Surgical History Surgical History H/O sinus surgery History of appendectomy Social History Social History Smoking status: Never smoker Alcohol intake: current Drinks per week: 6 Substance use type: does not use Living arrangements: other Additional living arrangements comments: with sp Gender identity (if verbalized by the patient): Male Spiritual care concerns: No Comments Reviewed Exam Narrative: GENERAL: Well-appearing, well-nourished, and in no acute distress. HEAD: Normocephalic, atraumatic. EYES: EOMI. No redness or drainage. Conjunctivae normal. ENT: Mucous membranes pink and moist. NECK: Normal AROM. CHEST: No respiratory distress. Clear to auscultation. HEART: Regular rate and rhythm. No murmur appreciated. MUSCULOSKELETAL: No bony tenderness of the spine. No paraspinal muscle tenderness. Patient localizes his pain to the mid midline lumbar spine area. Pain increases with bending and going from sitting to standing position. Distal sensation intact. Capillary refill normal. Pedal pulses normal. Dorsiflexion and plantar flexion equal and strong against resistance. Patellar reflexes 2+ bilaterally. EXTREMITIES: Normal range of motion. No edema. SKIN: Warm, dry, no rash. Capillary refill normal. Normal skin turgor. NEURO: No focal deficits. Alert and oriented x3. Gait steady. PSYCH: Normal affect. No signs of depression or anxiety. Course Course Level of Care:
== END 2023-09-04 10:40 | disposition home or self-care (01) ==
PROVIDERS: Emergency Provider Nurse Practitioner; PCP Internal Medicine
DX: M54.50 Low back pain, unspecified (principal); G89.29 Other chronic pain; I10 Essential (primary) hypertension; E78.5 Hyperlipidemia, unspecified; E66.9 Obesity, unspecified; Z68.30 Body mass index [BMI] 30.0-30.9, adult
CPT/HCPCS: 99213; G0463